=== PATIENT | female | born 1965 | race Caucasian/White ===

== ENCOUNTER 2018-04-05 00:37 | Day surgery (SDC) | payer BC ==
[2018-04-05] VITALS (9 sets, daily range): BP systolic 87–112; BP diastolic 41–74
[~2018-04-05] VITALS: Ht 167.6 cm; Wt 68.9 kg
[~2018-04-05 00:37] MED LIST: CALC500T6 PO; ESC10 PO; HYDR-653 PO; MULT-1335 PO; NAPR220C12 PO; ONDA4TAB97 PO
[2018-04-05] MEDS ORDERED: ROPIVACAINE 0.5% 20 ML VIAL ONE ×2 (08:26→08:29)
[2018-04-05] MEDS ORDERED: ROPIVACAINE 0.2% 20 ML VIAL ONE (08:29)
[2018-04-05] MEDS ORDERED: DEXAMETHASONE SOD PHOS 10MG/ML ONE (08:32)
[2018-04-05] MEDS ORDERED: LIDOCAINE MPF 1% 5 ML VIAL ONE (08:33)
[2018-04-05] MEDS ORDERED: fentaNYL CITR 250 MCG/5 ML AMP ONE (08:39)
[2018-04-05] MEDS ORDERED: PROPOFOL EMUL(*) 10MG/ML 20 ML 20 ML ONE (08:40)
[2018-04-05] MEDS ORDERED: LIDOCAINE 2% IV 100 MG/5ML SYR ONE (08:40)
[2018-04-05 09:51] LABS: PLATELET COUNT, AUTOMATED 367 K/uL (150-450)
[2018-04-05] MEDS ORDERED: NORMOSOL R SOLN(*) 1000 ML BAG 1,000 ML IV PRN (10:00)
[2018-04-05] MEDS ORDERED: MIDAZOLAM 2 MG/2 ML VIAL IVP PRN (10:00)
[2018-04-05] MEDS ORDERED: LIDOCAINE/SOD BICARB 8.4% SYR ID ONE (10:00)
[2018-04-05] MEDS ORDERED: FAMOTIDINE 20 MG TAB PO ONE (10:00)
--- NOTE | 2018-04-05 10:32 | EKG ---
FACILITY: [facility] PATIENT NAME: TOMMIE CHEUNG : [id number] MR: [id number] V: [id number] EXAM DATE: ORDERING PHYSICIAN: NAYE CONTE TECHNOLOGIST: NATALIIA French Reason : PREOP-FOOT Blood Pressure : / mmHG Vent. Rate : 073 BPM Atrial Rate : 073 BPM P-R Int : 156 ms QRS Dur : 082 ms QT Int : 398 ms P-R-T Axes : 071 073 049 degrees QTc Int : 438 ms Normal sinus rhythm Normal ECG No previous ECGs available Confirmed by JAVIER MCKINLEY ([id number]) on 04/05/2018 5:21:31 PM Referred By: Confirmed By:JAVIER MCKINLEY
[2018-04-05] MEDS ORDERED: ceFAZolin(*) 1 GM VIAL 1 GM in NS(*) 0.9% 100 ML ADDVANT BAG 100 ML IVPB ONE (10:35)
[2018-04-05] MEDS ORDERED: ROPIVACAINE 0.2% 400 MG/200ML 250 ML CONINFUS ONE (10:35)
[2018-04-05] MEDS ORDERED: DEXAMETHASONE SOD 4 MG/ML VIAL ONE (11:50)
[2018-04-05] MEDS ORDERED: ONDANSETRON 4 MG/2 ML VIAL ONE (11:50)
[2018-04-05] MEDS ORDERED: KETAMINE HCL 200 MG/20 ML MDV ONE ×2 (11:52→13:11)
[2018-04-05] MEDS ORDERED: NS 0.9% 20 ML SDV 20 ML ONE (11:58)
[2018-04-05] MEDS ORDERED: VASOPRESSIN 20 UNIT/ML VIAL ONE (12:00)
[2018-04-05] MEDS ORDERED: fentaNYL CITR 100 MCG/2 ML AMP ONE (13:56)
--- NOTE | 2018-04-05 14:14 | RADIOLOGY IMAGING REPORT ---
[place] [facility] [place] NAME: Bela Hobson : 1965 MR: [id number] V: [id number] EXAM DATE: ORDERING PHYSICIAN: SHARON SAAVEDRA TECHNOLOGIST: Location: [facility] Patient: Bela Hobson : 1965 Visit/Account:[id number] Date of Sevice: 04/05/2018 EXAMINATION: OR fluoroscopy films right lower extremity 3 views HISTORY: Right distal tibia and fibula ORIF. COMPARISON: Right ankle radiographs from 04/01/2018. FLUOROSCOPY TIME: 49.8 seconds. DOSE: DAP was 0.1812 Gy*cm2. FINDINGS: 3 fluoroscopic images of the right ankle are obtained intraoperatively. There is placemen t of a medial fixation plate and screws across the distal tibial fracture and a lateral fixation plat e and screws across the distal fibular fracture. Hardware is well-positioned and fractures are in ne ar-anatomic alignment. IMPRESSION: ORIF of right distal tibia and fibula fractures in progress. Please see the performing physician's n ed for full details. Report Dictated By: Fabi Rodriguez MD at 04/05/2018 2:08 PM Report E-Signed By: Fabi Rodriguez MD at 04/05/2018 2:10 PM WSN:[id number]
--- NOTE | 2018-04-05 14:17 | OPERATIVE REPORT 1 ---
EVENT DATE: April 05, 2018 SURGEON: Smith Albert MD ANESTHESIOLOGIST: Ryan Flores MD ANESTHESIA: General with femoral block LAPEL BASTER: SANDRA Hunter, [employer] LPN PREOPERATIVE DIAGNOSIS Significant distal tibial/fibular fracture. POSTOPERATIVE DIAGNOSIS Significant distal tibial/fibular fracture PROCEDURE PERFORMED Open reduction and internal fixation, distal tibial/fibula. ESTIMATED BLOOD LOSS Minimal. TOURNIQUET TIME Less than 2 hours. DESCRIPTION OF PROCEDURE The patient was brought to the operating room and placed in a supine position and a bump placed under the right hip to realign the right lower extremity. She was prepped and draped in normal sterile fashion using Prevail. Sterile stockinettes and U-drape were placed on the lower extremity. Stockinette was incised from above knee and held with Coban. Esmarch was then used to exsanguinate the lower extremity and tourniquet turned up to 300 mmHg. The first incision was made from the medial malleolus all the way up to the medial tibia. Skin was incised with #15 blade down to the subcutaneous tissue, the subcutaneous tissue bluntly dissected all the way down to the fracture and above and below it. We had identified the fracture and found multiple fragments, mostly of the lateral tibia. I did find a good approximation of the medial tibia with good alignment. We were able to take two ends and put those back together using fluoroscopy and made sure we had good alignment and good length. When we had that, we used multiple K-wires to hold it in position, placing a provisional plate medially just to see the length and the alignment. Once we felt we had good alignment at this point, we put multiple screws distally and proximally just to hold it in position. I brought fluoroscopy in and on AP and lateral found to have excellent alignment of the fracture and the joint. From here, we then placed multiple Synthes 2.7 and 3.5 locking screws both distally and proximally. We did try to lag one or two pieces fragments in but there was too much comminution to actually do that. We did bone graft the comminution areas with the pieces that were there. Once we had alignment of the tibia both on AP and lateral, we then turned our attention to the fibula, which had marked comminution. We made a large incision over the lateral aspect of the ankle, bluntly dissecting down to the fracture. This was in multiple segmented pieces. Therefore, we had to make a very long incision to get above and below the fractures. Once we had above and below the fracture put a very long one-third tubular locking plate on, we used two-point reduction clamps to place the segments in the appropriate position. I then placed a screw proximally to a push-pull screw to push the fibula out to length, which I think was appropriate, and go it to appropriate length. We then locked it proximally and locked it distally and then we lagged all the small fragments in between. Once we had those we felt in good position, I brought fluoroscopy in AP and lateral and found to have excellent alignment of fibula, excellent alignment of the tibia and the joints. We then closed using 3-0 Monocryl and ofe. Due to the significant swelling that was there, I do not think a subcuticular would have been appropriate. Therefore, ofe were used. Adaptic 4x4's and a big bulky Sharp dressing. The patient went to recovery with no complications. SANDIP
[2018-04-05] MEDS ORDERED: KETOROLAC 30 MG/ML VIAL ONE (14:39)
== END 2018-04-05 15:30 | disposition home or self-care (01) ==
LOC: OR 00:37
PROVIDERS: ATTEND Orthopaedic Surgery
DX: S92.001A Unspecified fracture of right calcaneus, initial encounter for closed fracture (principal); S82.251A Displaced comminuted fracture of shaft of right tibia, initial encounter for closed fracture; S82.451A Displaced comminuted fracture of shaft of right fibula, initial encounter for closed fracture; S92.101A Unspecified fracture of right talus, initial encounter for closed fracture; K21.9 Gastro-esophageal reflux disease without esophagitis; F32.9 Major depressive disorder, single episode, unspecified; W10.9XXA Fall (on) (from) unspecified stairs and steps, initial encounter
CPT/HCPCS: 27828; 36415; 76000; 76942; 85025; 93005; C1713; J0690; J1100; J1885; J2001; J2250; J2405; J2704; J2795; J3010; J3490; J7050

== ENCOUNTER → 2018-11-14 | Outpatient (CLI) | payer BC ==
--- NOTE | 2018-11-14 17:27 | RADIOLOGY IMAGING REPORT ---
FACILITY: [facility] [place] PATIENT NAME: Bela Hobson : 1965 MR: [id number] V: [id number] EXAM DATE: ORDERING PHYSICIAN: SHARON SAAVEDRA TECHNOLOGIST: Location: [facility] Patient: Bela Hobson : 1965 Visit/Account:[id number] Date of Sevice: 11/14/2018 CT ANKLE W/O RT COMPARISON: Right ankle CT 04/01/2018. HISTORY: Delayed union right ankle ORIF, fell on 04/02/2018. TECHNIQUE: Noncontrast axial CT of the right ankle with coronal and sagittal reformats. One of the following dose optimization techniques was utilized in the performance of this exam: auto mated exposure control; adjustment of the mA and/or kV according to patient size; or use of iterative reconstruction technique. Specific details can be referenced in the facility's radiology CT exam op erational policy. CONTRAST: None. FINDINGS: BONES : Chronic ununited oblique fracture deformity of the distal tibial metaphysis affixed with a m edial plate and multiple screws, no evidence of bony bridging. No evidence of hardware loosening. The re is mild anterior angulation of the distal fracture fragment. Chronic cortical thickening/benign-ap pearing periosteal reaction along the margins of the distal tibial metaphysis, with an oblique 1.9 cm length bone fragment within the medial fracture line and distal fracture displacement by about 1.5 c m. There is sclerosis along the metaphyseal fracture line in the appearance is consistent with chroni c nonunion. A more distal fracture extending to the lateral margin of the tibial plafond has healed with a spurli ke deformity which widens the superior mortise medially. Chronic partially healed fracture deformity of the distal fibular shaft affixed internally with a lat eral plate and multiple screws, with mild anterior angulation/bowing and with chronic cortical thicke benjie and some bony bridging although some of the fracture line is still evident, for example series 9 image 14. No hardware-related complications. There is no osteochondral defect within the dome of the talus. Chronic bone fragment distal to the tip of the lateral malleolus represents an ununited chronic later al talus avulsion fracture fragment. Chronic healed fracture deformity of the anterior calcaneus and sustentaculum telemetry. 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 There are no new fractures. Small posterior calcaneal enthesophyte at the Achilles insertion. Mild ti biotalar joint spurring and narrowing. FLUID: No appreciable effusion or drainable fluid collection. SOFT TISSUES: Appropriate position and morphology of the visualized major ankle tendons. No focal mu scle atrophy. OTHER: Negative. IMPRESSION: 1. 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 2. Healed fracture deformity of the more distal tibia extending to the tibial plafond, which has hea led with a deformity which widens the superior ankle mortise medially. 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 3. Chronic partially healed fracture deformity of the distal fibular shaft with some bony bridging. 4. No evidence of hardware loosening. 5. Chronic healed fractures of the calcaneus. 6. Small chronic ununited lateral talar avulsion fracture fragments. Report Dictated By: Fahad Baca at 11/14/2018 4:58 PM Report E-Signed By: Fahad Baca at 11/14/2018 5:19 PM WSN:[id number]
== END ==
LOC: CT 13:03
PROVIDERS: ATTEND Orthopaedic Surgery
DX: S82.831K Other fracture of upper and lower end of right fibula, subsequent encounter for closed fracture with nonunion (principal)